=== PATIENT | female | born 1945 | race Caucasian/White ===

== ENCOUNTER → 2024-09-04 | Day surgery (SDC) | payer MEDICAID ==
[~2024-09-04] VITALS: Ht 152.4 cm; Wt 67.6 kg
[~2024-09-04] MED LIST: AMLO10TA80 PO; ASPI-1406 PO; ASPIRIN/SOD BICARB/CITRIC ACID 324MG TAB EFF ONE; ATOR40TA70 PO; DIPHENHYDRAMINE 50MG/ML VIAL ONE; GABA-534 PO; GLIP10TA17 PO; HEPARIN 1000 UNITS/ML 10ML ONE; HYDR12.54 PO; IODIXANOL 320MG/ML 100 ML BOTTLE IV ONE; LIDOCAINE HCL 1% 20ML VIAL ONE; METF-416 PO; METO100T16 PO; ONDANSETRON HCL 4MG/2ML INJ ONE; SODIUM CHLORIDE 0.45% 500 ML IV SCH
[2024-09-04 07:48] LABS: BASOPHILS % 1.3 % (0.0-2.0); DIFFERENTIAL COMMENT 0; EOSINOPHILS % 1.3 % (0.0-5.0); HEMATOCRIT. 36.1 % (36.0-48.0); HEMOGLOBIN. 11.2 g/dL (12.0-16.0); LYMPHOCYTES % 32.6 % (20.0-50.0); MEAN CORPUSCULAR HEMOGLOBIN 22.7 pg (28.0-32.0); MEAN CORPUSCULAR VOLUME 73.1 fL (81.0-99.0); MEAN PLATELET VOLUME 8.9 fl (7.4-10.4); MONOCYTES % 6.5 % (2.0-8.0); NEUTROPHILS % 58.3 % (40.0-76.0); PLATELET 310 x1000/uL (130-400); RED BLOOD CELL COUNT 4.94 mill/uL (4.2-5.4); RED CELL DISTRIBUTION WIDTH 16.2 % (11.6-14.6); WHITE BLOOD COUNT 7.7 x1000/uL (4.5-11.0)
[2024-09-04 08:04] LABS: POTASSIUM 5.7 mEq/L (3.5-5.1)
[2024-09-04 08:05] LABS: CALCIUM 9.6 mg/dL (8.7-10.4)
[2024-09-04 08:10] LABS: CREATININE 1.2 mg/dL (0.6-1.0)
[2024-09-04] MEDS: SODIUM ZIRCONIUM CYCLOSILICATE 10GM/PACKET PO NR (08:40)
== END | disposition home or self-care (01) ==
LOC: OR 07:06
PROVIDERS: ATTEND Specialist
DX: E11.51 Type 2 diabetes mellitus with diabetic peripheral angiopathy without gangrene (principal); Z53.8 Procedure and treatment not carried out for other reasons; I25.10 Atherosclerotic heart disease of native coronary artery without angina pectoris; I11.9 Hypertensive heart disease without heart failure; E78.5 Hyperlipidemia, unspecified; I31.39 Other pericardial effusion (noninflammatory); Z79.4 Long term (current) use of insulin; Z79.82 Long term (current) use of aspirin; Z79.84 Long term (current) use of oral hypoglycemic drugs; Z79.899 Other long term (current) drug therapy; Z95.1 Presence of aortocoronary bypass graft; Z98.890 Other specified postprocedural states
CPT/HCPCS: 80048; 85025; 36415; Q9967; J1200; J1644 ×2; J2003; J2405; A4606